=== PATIENT | male | born 1990 | race American Indian/Alaskan Native ===

== ENCOUNTER 2017-09-22 20:36 | Emergency (ER) | payer OTHER ==
[2017-09-22] MEDS ORDERED: Sodium Chloride 0.9% 10 ML Syringe FLUSH PRN (20:52)
[2017-09-22 21:16] LABS: ANION GAP 16.2; CHLORIDE,CL 103 mmol/L (101-111); SODIUM,NA 139 mmol/L (135-145)
[2017-09-22] MEDS ORDERED: LORazepam 2 MG/ML Syringe IVPUSH ONE (21:39)
--- NOTE | 2017-09-22 21:39 | EDM.PDOC ---
ED HPI GENERAL MEDICAL PROBLEM - General Chief Complaint: Chest Pain Stated Complaint: CHEST PAINS SOB Time Seen by Provider: 09/22/17 20:46 Source of Information: Reports: Patient, RN, RN Notes Reviewed History Limitations: Reports: No Limitations - History of Present Illness INITIAL COMMENTS - FREE TEXT/NARRATIVE: Pt to ER with c/o sudden onset chest heaviness, SOB. He states this has never happened before. 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 He states no pain, just heaviness, rates 8/10. Denies recent illness, fever, chills, N/V/D. Admits to anxiety in the past. Onset: Today, Sudden Location: Reports: Chest Quality: Reports: Pressure Severity: Moderate Improves with: Reports: None Worsens with: Reports: None Associated Symptoms: Reports: No Other Symptoms Chest Pain Score (Numeric/FACES): 8 - Related Data Allergies Allergy/AdvReac Type Severity Reaction Status Date / Time No Known Allergies Allergy Verified 09/22/17 20:51 Home Meds: Home Meds . [No Known Home Meds] 09/22/17 [History] Past Medical History HEENT History: Reports: None Cardiovascular History: Reports: None Respiratory History: Reports: None Gastrointestinal History: Reports: None Genitourinary History: Reports: None Musculoskeletal History: Reports: None Neurological History: Reports: None Psychiatric History: Reports: Anxiety Endocrine/Metabolic History: Reports: None Hematologic History: Reports: None Immunologic History: Reports: None Oncologic (Cancer) History: Reports: None Dermatologic History: Reports: None Social & Family History - Tobacco Use Smoking Status *Q: Current Some Day Smoker Years of Tobacco use: 2 Packs/Tins Daily: 0.1 - Caffeine Use Caffeine Use: Reports: None - Recreational Drug Use Recreational Drug Use: No ED ROS GENERAL - Review of Systems Review Of Systems: ROS reveals no pertinent complaints other than HPI. ED EXAM, GENERAL - Physical Exam Exam: See Below Exam Limited By: No Limitations General Appearance: Alert, WD/WN, Moderate Distress Eye Exam: Bilateral Eye: EOMI, Normal Inspection Ears: Normal External Exam, Hearing Grossly Normal Nose: Normal Inspection Throat/Mouth: Normal Inspection, Normal Voice, No Airway Compromise Head: Atraumatic, Normocephalic Neck: Normal Inspection, Supple, Non-Tender, Full Range of Motion Respiratory/Chest: No Respiratory Distress, Lungs Clear, Normal Breath Sounds, No Accessory Muscle Use, Chest Non-Tender Cardiovascular: Normal Peripheral Pulses, Regular Rate, Rhythm, No Edema, No Gallop, No JVD, No Murmur, No Rub Peripheral Pulses: 2+: Radial (L), Radial (R) GI/Abdominal: Normal Bowel Sounds, Soft, Non-Tender (Male) Exam: Deferred Rectal (Males) Exam: Deferred Back Exam: Normal Inspection, Full Range of Motion Extremities: Normal Inspection, Normal Range of Motion, Non-Tender, No Pedal Edema, Normal Capillary Refill Neurological: Alert, Oriented, CN II-XII Intact, Normal Cognition, Normal Gait, Normal Reflexes, No Motor/Sensory Deficits Psychiatric: Anxious Skin Exam: Warm, Dry, Intact, Normal Color, No Rash Lymphatic: No Adenopathy EKG INTERPRETATION EKG Date: 09/22/17 Time: 20:44 Rhythm: Other (sinus tachycardia) Rate (Beats/Min): 103 [place]: Normal P-Wave: Present QRS: Normal ST-T: Normal QT: Prolonged Course - Vital Signs Last Recorded V/S: Last Vital Signs Temp 98.6 F 09/22/17 20:40 Pulse 119 H 09/22/17 20:40 Resp 18 09/22/17 20:40 BP 134/100 H 09/22/17 20:40 Pulse Ox 98 09/22/17 20:40 - Orders/Labs/Meds Labs: Laboratory Tests 09/22/17 09/22/17 09/22/17 Range/Units 20:47 20:47 20:47 WBC 8.0 (5.0-10.0) 10^3/uL RBC 4.65 (4.6-6.2) 10^6/uL Hgb 14.3 (14.0-18.0) g/dL Hct 42.7 (40.0-54.0) % MCV 91.8 (80-100) fL MCH 30.8 (27.0-34.0) pg MCHC 33.5 (33.0-35.0) g/dL Plt Count 299 (150-450) 10^3/uL Neut % (Auto) 31.0 L (42.2-75.2) % Lymph % (Auto) 56.1 H (20.5-50.1) % Dane % (Auto) 8.9 H (2-8) % Eos % (Auto) 3.1 H (1.0-3.0) % Baso % (Auto) 0.9 (0.0-1.0) % D-Dimer, Quantitative 452 H (0-400) ng/mL Sodium 139 (135-145) mmol/L Potassium 3.2 L (3.6-5.0) mmol/L Chloride 103 (101-111) mmol/L Carbon Dioxide 23.0 (21.0-31.0) mmol/L Anion Gap 16.2 BUN 5 L (7-18) mg/dL Creatinine 0.8 (0.6-1.3) mg/dL Est Cr Clr Drug Dosing TNP Estimated GFR (MDRD) > 60 BUN/Creatinine Ratio 6.25 Glucose TNP Calcium 8.9 (8.4-10.2) mg/dl Total Bilirubin 0.5 (0.2-1.0) mg/dL AST 125 H (10-42) IU/L ALT 157 H (10-60) IU/L Alkaline Phosphatase 92 (42-121) IU/L Troponin I < 0.02 (0.00-0.02) ng/ml Total Protein 8.1 (6.7-8.2) g/dl Albumin 4.3 (3.2-5.5) g/dl Globulin 3.8 Albumin/Globulin Ratio 1.13 Urine Color (YELLOW) Urine Appearance (CLEAR) Urine pH (5.0-9.0) Ur Specific Criders (1.005-1.030) Urine Protein (NEGATIVE) Urine Glucose (UA) (NEGATIVE) Urine Ketones (NEGATIVE) Urine Occult Blood (NEGATIVE) Urine Nitrite (NEGATIVE) Urine Bilirubin (NEGATIVE) Urine Urobilinogen (0.2-1.0) mg/dL Ur Leukocyte Esterase (NEGATIVE) Urine RBC /HPF Urine WBC (0-5/HPF) /HPF Ur Epithelial Cells /HPF Urine Bacteria (0-FEW/HPF) /HPF Urine Mucus /LPF Urine Opiates Screen (NEGATIVE) Ur Oxycodone Screen (NEGATIVE) Urine Methadone Screen (NEGATIVE) Ur Barbiturates Screen (NEGATIVE) U Tricyclic Antidepress (NEGATIVE) Ur Phencyclidine Scrn (NEGATIVE) Ur Amphetamine Screen (NEGATIVE) U Methamphetamines Scrn (NEGATIVE) Urine MDMA Screen (NEGATIVE) U Benzodiazepines Scrn (NEGATIVE) Urine Cocaine Screen (NEGATIVE) U Marijuana (THC) Screen (NEGATIVE) Ethyl Alcohol 62 mg/dL 09/22/17 09/22/17 Range/Units 21:34 21:34 WBC (5.0-10.0) 10^3/uL RBC (4.6-6.2) 10^6/uL Hgb (14.0-18.0) g/dL Hct (40.0-54.0) % MCV (80-100) fL MCH (27.0-34.0) pg MCHC (33.0-35.0) g/dL Plt Count (150-450) 10^3/uL Neut % (Auto) (42.2-75.2) % Lymph % (Auto) (20.5-50.1) % Dane % (Auto) (2-8) % Eos % (Auto) (1.0-3.0) % Baso % (Auto) (0.0-1.0) % D-Dimer, Quantitative (0-400) ng/mL Sodium (135-145) mmol/L Potassium (3.6-5.0) mmol/L Chloride (101-111) mmol/L Carbon Dioxide (21.0-31.0) mmol/L Anion Gap BUN (7-18) mg/dL Creatinine (0.6-1.3) mg/dL Est Cr Clr Drug Dosing Estimated GFR (MDRD) BUN/Creatinine Ratio Glucose Calcium (8.4-10.2) mg/dl Total Bilirubin (0.2-1.0) mg/dL AST (10-42) IU/L ALT (10-60) IU/L Alkaline Phosphatase (42-121) IU/L Troponin I (0.00-0.02) ng/ml Total Protein (6.7-8.2) g/dl Albumin (3.2-5.5) g/dl Globulin Albumin/Globulin Ratio Urine Color Yellow (YELLOW) Urine Appearance Clear (CLEAR) Urine pH 7.5 (5.0-9.0) Ur Specific Criders 1.020 (1.005-1.030) Urine Protein 100 H (NEGATIVE) Urine Glucose (UA) Negative (NEGATIVE) Urine Ketones Negative (NEGATIVE) Urine Occult Blood Negative (NEGATIVE) Urine Nitrite Negative (NEGATIVE) Urine Bilirubin Negative (NEGATIVE) Urine Urobilinogen 0.2 (0.2-1.0) mg/dL Ur Leukocyte Esterase Negative (NEGATIVE) Urine RBC 0-5 /HPF Urine WBC 0-5 (0-5/HPF) /HPF Ur Epithelial Cells Few /HPF Urine Bacteria Rare (0-FEW/HPF) /HPF Urine Mucus Many H /LPF Urine Opiates Screen Negative (NEGATIVE) Ur Oxycodone Screen Negative (NEGATIVE) Urine Methadone Screen Negative (NEGATIVE) Ur Barbiturates Screen Negative (NEGATIVE) U Tricyclic Antidepress Negative (NEGATIVE) Ur Phencyclidine Scrn Negative (NEGATIVE) Ur Amphetamine Screen Negative (NEGATIVE) U Methamphetamines Scrn Negative (NEGATIVE) Urine MDMA Screen Negative (NEGATIVE) U Benzodiazepines Scrn Negative (NEGATIVE) Urine Cocaine Screen Negative (NEGATIVE) U Marijuana (THC) Screen Positive H (NEGATIVE) Ethyl Alcohol mg/dL Meds: Medications Discontinued Medications Generic Name Dose Route Start Last Admin Trade Name Freq PRN Reason Stop Dose Admin Lorazepam 1 mg 09/22/17 21:39 09/22/17 21:44 Ativan IVPUSH 09/22/17 21:40 1 mg ONETIME ONE Administration Sodium Chloride 10 ml 09/22/17 20:52 09/22/17 20:50 Saline Flush FLUSH 10 ml ASDIRECTED PRN Administration Keep Vein Open - Radiology Interpretation Free Text/Narrative:: Chest xray: IMPRESSION: No acute cardiopulmonary process. Thank you for allowing us to participate in the care of your patient. Dictated and Authenticated by: Niko Reyes MD 09/22/2017 9:10 PM Central Time ([place] & [place]) See Rad report Departure - Departure Time of Disposition: 22:35 Disposition: Home, Self-Care 01 Condition: Fair Clinical Impression: Anxiety, Alcohol abuse Instructions: Alcohol Use Disorder, Panic Attack, [id number], Nonspecific Chest Pain, [id number] Forms: ED Department Discharge Additional Instructions: Follow up in the clinic or at the [facility] for anxiety Refrain from drinking alcohol
== END 2017-09-22 22:42 | disposition home or self-care (01) ==
LOC: DL.ED 20:36
DX: F41.9 Anxiety disorder, unspecified (principal); F10.10 Alcohol abuse, uncomplicated; Y90.3 Blood alcohol level of 60-79 mg/100 ml; F17.210 Nicotine dependence, cigarettes, uncomplicated
CPT/HCPCS: 36415; 71045; 80053; 80305; 81001; 84484; 85025; 85379; 93005; 93010; 96374; 99285; G0480; J2060; J7050

== ENCOUNTER 2017-10-28 03:17 | Emergency (ER) | payer OTHER ==
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
[2017-10-28] MEDS ORDERED: fentaNYL 100 MCG/2 ML SDV IVPUSH ONE (04:14)
[2017-10-28] MEDS ORDERED: Ondansetron 4 MG/2 ML SDV IV ONE (04:14)
== END 2017-10-28 05:18 | disposition home or self-care (01) ==
LOC: DL.ED 03:17
DX: S42.034S Nondisplaced fracture of lateral end of right clavicle, sequela (principal); F17.210 Nicotine dependence, cigarettes, uncomplicated; X58.XXXS Exposure to other specified factors, sequela
CPT/HCPCS: 73030; 96374; 96375; 99283; J2405; J3010

== ENCOUNTER 2018-06-25 19:35 | Emergency (ER) | payer OTHER ==
[2018-06-25] MEDS ORDERED: Ibuprofen 800 MG Tab PO ONE (20:25)
--- NOTE | 2018-06-25 20:32 | EDM.PDOC ---
ED HPI GENERAL MEDICAL PROBLEM - General Chief Complaint: Lower Extremity Injury/Pain Stated Complaint: ANKLE INJURY Time Seen by Provider: 06/25/18 20:02 Source of Information: Reports: Patient History Limitations: Reports: No Limitations - History of Present Illness INITIAL COMMENTS - FREE TEXT/NARRATIVE: This 27 yo male patient reports to the ED with a left ankle injury. The patient reports he was playing basketball and rolled his left ankle. The patient reports increased pain and swelling in the ankle since the injury. The patient reports he was able to walk on the ankle after the injury. Onset: Today Duration: Minutes: Location: Reports: Lower Extremity, Left Quality: Reports: Ache, Dull Severity: Moderate Improves with: Reports: None Worsens with: Reports: None Context: Reports: Activity Associated Symptoms: Reports: No Other Symptoms Treatments SPEECH AND LANGUAGE SPECIALIST: Denies: Acetaminophen, NSAIDS Left Ankle Pain Score (Numeric/FACES): 6 - Related Data Allergies Allergy/AdvReac Type Severity Reaction Status Date / Time No Known Allergies Allergy Verified 10/28/17 03:26 Home Meds: Home Meds . [No Known Home Meds] 09/22/17 [History] Past Medical History HEENT History: Reports: None Cardiovascular History: Reports: None Respiratory History: Reports: None Gastrointestinal History: Reports: None Genitourinary History: Reports: None Musculoskeletal History: Reports: None Neurological History: Reports: None Psychiatric History: Reports: Anxiety Endocrine/Metabolic History: Reports: None Hematologic History: Reports: None Immunologic History: Reports: None Oncologic (Cancer) History: Reports: None Dermatologic History: Reports: None Social & Family History - Tobacco Use Smoking Status *Q: Unknown Ever Smoked - Caffeine Use Caffeine Use: Reports: None - Alcohol Use Days Per Week of Alcohol Use: 2 Number of Drinks Per Day: 2 Total Drinks Per Week: 4 - Recreational Drug Use Recreational Drug Use: No Review of Systems - Review of Systems Review Of Systems: ROS reveals no pertinent complaints other than HPI. ED EXAM, GENERAL - Physical Exam Exam: See Below Exam Limited By: No Limitations General Appearance: Alert, WD/WN, Mild Distress Eye Exam: Bilateral Eye: EOMI, Normal Inspection, PERRL Ears: Normal External Exam, Normal Canal, Hearing Grossly Normal, Normal TMs Nose: Normal Inspection, Normal Mucosa, No Blood Throat/Mouth: Normal Inspection, Normal Lips, Normal Teeth, Normal Gums, Normal Oropharynx, Normal Voice, No Airway Compromise Head: Atraumatic, Normocephalic Neck: Normal Inspection, Supple, Non-Tender, Full Range of Motion Respiratory/Chest: No Respiratory Distress, Lungs Clear, Normal Breath Sounds, No Accessory Muscle Use, Chest Non-Tender Cardiovascular: Normal Peripheral Pulses, Regular Rate, Rhythm, No Edema, No Gallop, No JVD, No Murmur, No Rub GI/Abdominal: Normal Bowel Sounds, Soft, Non-Tender, No Organomegaly, No Distention, No Abnormal Bruit, No Mass (Male) Exam: Deferred Rectal (Males) Exam: Deferred Back Exam: Normal Inspection, Full Range of Motion, NT Extremities: No Pedal Edema, Normal Capillary Refill, Joint Swelling (left ankle ) Neurological: Alert, Oriented, CN II-XII Intact, Normal Cognition, Normal Gait, Normal Reflexes, No Motor/Sensory Deficits Psychiatric: Normal Affect, Normal Mood Skin Exam: Warm, Dry, Intact, Normal Color, No Rash Lymphatic: No Adenopathy Course - Vital Signs Last Recorded V/S: Last Vital Signs Temp 36.2 C 06/25/18 19:47 Pulse 128 H 06/25/18 19:47 Resp 18 06/25/18 19:47 BP 117/87 06/25/18 19:47 Pulse Ox 96 06/25/18 19:47 - Orders/Labs/Meds Meds: Medications Discontinued Medications Generic Name Dose Route Start Last Admin Trade Name Bj PRN Reason Stop Dose Admin Ibuprofen 800 mg 06/25/18 20:25 06/25/18 20:44 Motrin PO 06/25/18 20:26 800 mg ONETIME ONE Administration Departure - Departure Time of Disposition: 20:58 Disposition: Home, Self-Care 01 Condition: Fair Clinical Impression: Left ankle sprain Qualifiers: Encounter type: initial encounter Involved ligament of ankle: unspecified ligament Qualified Code(s): S93.402A - Sprain of unspecified ligament of left ankle, initial encounter - Discharge Information *PRESCRIPTION DRUG MONITORING PROGRAM REVIEWED*: Not Applicable *COPY OF PRESCRIPTION DRUG MONITORING REPORT IN PATIENT POLO: Not Applicable Instructions: How to Use a Stirrup Ankle Brace, Ankle Sprain, [id number] Forms: ED Department Discharge Care Plan Goals: The patient was advised of the examination and x-ray results during the visit. The patient was given an oral dose of ibuprofen while in the ED. The patient was placed in an ankle support and given a set of crutches while in the ED. The patient was encouraged to rest, ice and elevate the extremity. The patient may take Tylenol or ibuprofen as directed for temporary symptom relief. If the patient has any additional symptoms or concerns, the patient should either return to the emergency department or visit his primary care facility.
== END 2018-06-25 21:05 | disposition home or self-care (01) ==
LOC: DL.ED 19:35
DX: S93.402A Sprain of unspecified ligament of left ankle, initial encounter (principal); X50.1XXA Overexertion from prolonged static or awkward postures, initial encounter; Y93.67 Activity, basketball
CPT/HCPCS: 73610; 99283; A9270

== ENCOUNTER 2018-06-29 08:03 | Emergency (ER) | payer OTHER ==
[2018-06-29] MEDS ORDERED: Sodium Chloride 0.9% 10 ML Syringe FLUSH PRN (08:18)
--- NOTE | 2018-06-29 08:18 | EDM.PDOC ---
ED HPI GENERAL MEDICAL PROBLEM - General Chief Complaint: Chest Pain Stated Complaint: CHEST PAINS Time Seen by Provider: 06/29/18 08:18 Source of Information: Reports: Patient, Old Records, RN, RN Notes Reviewed - History of Present Illness INITIAL COMMENTS - FREE TEXT/NARRATIVE: Pt presents to ER from home by POV with c/o chest pain/pressure that began about 0200HRS this morning. Pt states he feels anxious and a little shaking in the hands. Pt states that he has vomited a few time in the past 2 days, but attributes it to heavy alcohol consumption. He states that he hurt his ankle about 5 days ago and didn't want to use "pain pills" so he began drinking alcohol heavily for the pain. He states he usually has several beers or drinks each night for the past several years. He last drank 2 beers at approx. 0400HRS this morning. He also c/o a very dry mouth. He denies abdominal pain, shortness of breath, cough, palpitations, or edema. Onset: Today Duration: Constant Location: Reports: Chest Quality: Reports: Pressure Severity: Mild Improves with: Reports: None Worsens with: Reports: None Associated Symptoms: Reports: No Other Symptoms Chest Pain Score (Numeric/FACES): 2 - Related Data Allergies Allergy/AdvReac Type Severity Reaction Status Date / Time No Known Allergies Allergy Verified 10/28/17 03:26 Home Meds: Home Meds . [No Known Home Meds] 09/22/17 [History] Past Medical History HEENT History: Reports: None Cardiovascular History: Reports: None Respiratory History: Reports: None Gastrointestinal History: Reports: None Genitourinary History: Reports: None Musculoskeletal History: Reports: None Neurological History: Reports: None Psychiatric History: Reports: Anxiety Endocrine/Metabolic History: Reports: None Hematologic History: Reports: None Immunologic History: Reports: None Oncologic (Cancer) History: Reports: None Dermatologic History: Reports: None Social & Family History - Family History Family Medical History: Noncontributory - Caffeine Use Caffeine Use: Reports: None - Living Situation & Occupation Living situation: Reports: with Family Occupation: Employed ED ROS GENERAL - Review of Systems Review Of Systems: ROS reveals no pertinent complaints other than HPI. ED EXAM, GENERAL - Physical Exam Exam: See Below Exam Limited By: No Limitations General Appearance: Alert, WD/WN, No Apparent Distress, Anxious Eye Exam: Bilateral Eye: EOMI, Nystagmus (lateral gaze), PERRL Ears: Normal External Exam, Normal Canal, Hearing Grossly Normal, Normal TMs Nose: Normal Inspection, Normal Mucosa, No Blood Throat/Mouth: Normal Lips, Normal Teeth, Normal Gums, Normal Oropharynx, Normal Voice, No Airway Compromise, Other (Dry oral membranes) Head: Atraumatic, Normocephalic Neck: Normal Inspection, Supple, Non-Tender, Full Range of Motion Respiratory/Chest: No Respiratory Distress, Lungs Clear, Normal Breath Sounds, No Accessory Muscle Use, Chest Non-Tender Cardiovascular: Normal Peripheral Pulses, Regular Rate, Rhythm, No Edema, No JVD , No Murmur, Tachycardia GI/Abdominal: Normal Bowel Sounds, Soft, No Organomegaly, No Distention, No Abnormal Bruit, Tender (Mild epigastric tenderness). No: Guarding, Rigid, Rebound (Male) Exam: Deferred Rectal (Males) Exam: Deferred Back Exam: Normal Inspection Extremities: Normal Inspection, Normal Range of Motion, Non-Tender, Normal Capillary Refill, No Pedal Edema Neurological: Alert, Oriented, CN II-XII Intact, Normal Cognition, Normal Gait, No Motor/Sensory Deficits Psychiatric: Anxious Skin Exam: Warm, Dry, Intact, Normal Color, No Rash. No: Jaundice, Petechiae EKG INTERPRETATION EKG Date: 06/29/18 Time: 08:13 Rhythm: Other (Sinus Tach) Rate (Beats/Min): 120 Bulger: Normal P-Wave: Present QRS: Normal ST-T: Normal QT: Prolonged (borderline) Comparison: No Change Course - Vital Signs Last Recorded V/S: Last Vital Signs Temp 36.7 C 06/29/18 08:19 Pulse 137 H 06/29/18 08:19 Resp 20 06/29/18 08:19 BP 116/72 06/29/18 08:19 Pulse Ox 97 06/29/18 08:19 - Orders/Labs/Meds Orders: Active Orders 24 hr Category Date Time Status EKG 12 Lead [EKG Documentation Completion] [RC] STAT Care 06/29/18 08:18 Active Peripheral IV Care [RC] . DIRECTED Care 06/29/18 08:19 Active DRUG SCREEN URINE BIORAD [URCHEM] Stat Lab 06/29/18 08:19 Ordered UA RFX PINEDA AND CULT IF INDIC [URIN] Stat Lab 06/29/18 08:19 Ordered Sodium Chloride 0.9% [Saline Flush] Med 06/29/18 08:18 Active 10 ml FLUSH ASDIRECTED PRN Peripheral IV Insertion Adult [OM.PC] Stat Oth 06/29/18 08:18 Ordered Medication Orders Sodium Chloride (Saline Flush) 10 ml FLUSH ASDIRECTED PRN PRN Reason: Keep Vein Open Last Admin: 06/29/18 09:09 Dose: 10 ml Labs: Laboratory Tests 06/29/18 06/29/18 Range/Units 08:15 08:15 WBC 9.1 (5.0-10.0) 10^3/uL RBC 4.56 L (4.6-6.2) 10^6/uL Hgb 14.4 (14.0-18.0) g/dL Hct 43.0 (40.0-54.0) % MCV 94.3 (80-100) fL MCH 31.6 (27.0-34.0) pg MCHC 33.5 (33.0-35.0) g/dL Plt Count 321 (150-450) 10^3/uL Neut % (Auto) 60.4 (42.2-75.2) % Lymph % (Auto) 27.3 (20.5-50.1) % [place] % (Auto) 10.5 H (2-8) % Eos % (Auto) 1.0 (1.0-3.0) % Baso % (Auto) 0.8 (0.0-1.0) % Sodium 138 (135-145) mmol/L Potassium 3.2 L (3.6-5.0) mmol/L Chloride 101 (101-111) mmol/L Carbon Dioxide 23.0 (21.0-31.0) mmol/L Anion Gap 17.2 BUN 5 L (7-18) mg/dL Creatinine 0.7 (0.6-1.3) mg/dL Est Cr Clr Drug Dosing 146.89 mL/min Estimated GFR (MDRD) > 60 BUN/Creatinine Ratio 7.14 Glucose 149 H (74-105) mg/dL Calcium 9.1 (8.4-10.2) mg/dl Total Bilirubin 0.8 (0.2-1.0) mg/dL AST 280 H (10-42) IU/L ALT 270 H (10-60) IU/L Alkaline Phosphatase 92 (42-121) IU/L Troponin I < 0.02 (0.00-0.02) ng/ml Total Protein 8.6 H (6.7-8.2) g/dl Albumin 4.1 (3.2-5.5) g/dl Globulin 4.5 Albumin/Globulin Ratio 0.91 Amylase 70 (28-100) U/L Lipase 44 (22-51) U/L Ethyl Alcohol 144 mg/dL Meds: Medications Generic Name Dose Route Start Last Admin Trade Name Freq PRN Reason Stop Dose Admin Sodium Chloride 10 ml 06/29/18 08:18 06/29/18 09:09 Saline Flush FLUSH 10 ml ASDIRECTED PRN Administration Keep Vein Open Discontinued Medications Generic Name Dose Route Start Last Admin Trade Name Freq PRN Reason Stop Dose Admin Famotidine 20 mg 06/29/18 08:26 06/29/18 09:09 Pepcid IVPUSH 06/29/18 08:27 20 mg ONETIME ONE Administration Multivitamins/Minerals 10 ml/ 1,011.2 mls @ 999 mls/hr 06/29/18 08:26 09:09 Thiamine HCl 100 mg/ Folic IV 06/29/18 09:26 999 mls/hr Acid 1 mg/ Lactated Ringer's .BOLUS ONE Administration Lorazepam 1 mg 06/29/18 08:26 06/29/18 09:09 Ativan IVPUSH 06/29/18 08:27 1 mg ONETIME ONE Administration Ondansetron HCl 4 mg 06/29/18 08:26 06/29/18 09:09 Zofran IV 06/29/18 08:27 4 mg ONETIME ONE Administration - Radiology Interpretation Free Text/Narrative:: CXR: no acute process per Rad. report. Departure - Departure Time of Disposition: 09:51 Disposition: Home, Self-Care 01 Condition: Good Clinical Impression: Non-cardiac chest pain, Alcoholic liver disease Gastroesophageal reflux disease Qualifiers: Esophagitis presence: with esophagitis Qualified Code(s): K21.0 - Gastro- esophageal reflux disease with esophagitis Alcoholic gastritis without bleeding Qualifiers: Chronicity: acute Qualified Code(s): K29.20 - Alcoholic gastritis without bleeding Instructions: Food Choices for Gastroesophageal Reflux Disease, Adult, Alcoholic Liver Disease, [id number] Forms: ED Department Discharge Additional Instructions: Rx: Omeprazole 20mg Rx: Ativan (Lorazepam) 1mg *Do not drive, work, or drink alcohol while under the influence of this medication. Abstain from alcohol consumption. Follow up in clinic if not improving in 3 to 4 days. [facility] or [facility] if you need help to quit drinking alcohol. - My Orders Last 24 Hours: My Active Orders 06/29/18 08:18 EKG 12 Lead [EKG Documentation Completion] [RC] STAT Sodium Chloride 0.9% [Saline Flush] 10 ml FLUSH ASDIRECTED PRN Peripheral IV Insertion Adult [OM.PC] Stat 06/29/18 08:19 Peripheral IV Care [RC] . DIRECTED DRUG SCREEN URINE BIORAD [URCHEM] Stat UA RFX PINEDA AND CULT IF INDIC [URIN] Stat - Assessment/Plan Last 24 Hours: My Active Orders 06/29/18 08:18 EKG 12 Lead [EKG Documentation Completion] [RC] STAT Sodium Chloride 0.9% [Saline Flush] 10 ml FLUSH ASDIRECTED PRN Peripheral IV Insertion Adult [OM.PC] Stat 06/29/18 08:19 Peripheral IV Care [RC] . DIRECTED DRUG SCREEN URINE BIORAD [URCHEM] Stat UA RFX PINEDA AND CULT IF INDIC [URIN] Stat
[2018-06-29] MEDS ORDERED: LORazepam 2 MG/ML Syringe IVPUSH ONE (08:26)
[2018-06-29] MEDS ORDERED: Ondansetron 4 MG/2 ML SDV IV ONE (08:26)
[2018-06-29] MEDS ORDERED: MVI, Adult with Vitamin K 10 ML, Thiamine 100 MG, Folic Acid 1 MG in Lactated Ringers 1... IV ONE ×4 (08:26)
[2018-06-29] MEDS ORDERED: Famotidine 20 MG/2 ML SDV IVPUSH ONE (08:26)
[2018-06-29 08:43] LABS: ANION GAP 17.2; CHLORIDE,CL 101 mmol/L (101-111); SODIUM,NA 138 mmol/L (135-145)
--- NOTE | 2018-06-29 08:49 | CR ---
Clinical history: 27-year-old male chest pain Interpretation: Reasonable inspiratory effort obese male with external humanities division chair leads. Old fracture right clavicle. Normal cardiac silhouette without cephalization of flow signs of alveolar edema or dependent effusion. No lung mass, hilar lymphadenopathy or focal lobar pneumonia. No atelectasis/collapse. Midline tracheal airway unremarkable. No pneumothorax. CONCLUSION: No acute new cardiopulmonary abnormality when compared 22 September 2017 exam.
== END 2018-06-29 10:07 | disposition home or self-care (01) ==
LOC: DL.ED 08:03
DX: K70.9 Alcoholic liver disease, unspecified (principal); K29.20 Alcoholic gastritis without bleeding; K21.0 Gastro-esophageal reflux disease with esophagitis; R07.89 Other chest pain
CPT/HCPCS: 36415; 71045; 80053; 82150; 83690; 84484; 85025; 93005; 96365; 96374; 96375; 99284; G0480; J2060; J2405; J3411; J3490; J7120; 93010

== ENCOUNTER 2018-12-16 07:40 | Emergency (ER) | payer SELFPAY ==
[2018-12-16] MEDS ORDERED: Sodium Chloride 0.9% 10 ML Syringe FLUSH PRN (07:52)
[2018-12-16] MEDS ORDERED: LORazepam 2 MG/ML Syringe IVPUSH ONE (08:02)
[2018-12-16] MEDS ORDERED: MVI, Adult with Vitamin K 10 ML, Folic Acid 1 MG, Thiamine 100 MG in Lactated Ringers 1... IV ONE ×4 (08:02)
--- NOTE | 2018-12-16 08:11 | EDM.PDOC ---
ED HPI GENERAL MEDICAL PROBLEM - General Chief Complaint: Chest Pain Stated Complaint: CHEST PAIN Time Seen by Provider: 12/16/18 07:55 Source of Information: Reports: Patient, RN, RN Notes Reviewed History Limitations: Reports: No Limitations - History of Present Illness INITIAL COMMENTS - FREE TEXT/NARRATIVE: Pt to ER with c/o midsternal chest pains. States the pain began about 2300 last night and does not radiate anywhere. Patient states he does have troubles with anxiety and acid reflux. Denies any cardiac history in himself or family. Denies drug use, admits to provider "a few beers last night with friends". Admitted to nurse that he drinks 4 or more every day for the past many days. Denies any recent illness, cough, fever, chills, vomiting or diarrhea, SOB. Admits to some nausea. Onset: Sudden Onset Date: 12/15/18 Duration: Constant Location: Reports: Chest Quality: Reports: Sharp Severity: Moderate Improves with: Reports: None Worsens with: Reports: None Associated Symptoms: Reports: Chest Pain, Nausea/Vomiting Mid-Sternal Pain Score (Numeric/FACES): 5 - Related Data Allergies Allergy/AdvReac Type Severity Reaction Status Date / Time No Known Allergies Allergy Verified 12/16/18 07:57 Home Meds: Home Meds . [No Known Home Meds] 09/22/17 [History] Past Medical History HEENT History: Reports: None Cardiovascular History: Reports: None Respiratory History: Reports: None Gastrointestinal History: Reports: None Genitourinary History: Reports: None Musculoskeletal History: Reports: None Neurological History: Reports: None Psychiatric History: Reports: Anxiety Endocrine/Metabolic History: Reports: None Hematologic History: Reports: None Immunologic History: Reports: None Oncologic (Cancer) History: Reports: None Dermatologic History: Reports: None Social & Family History - Family History Family Medical History: Noncontributory - Tobacco Use Smoking Status *Q: Never Smoker - Caffeine Use Caffeine Use: Reports: None - Alcohol Use Days Per Week of Alcohol Use: 7 Number of Drinks Per Day: 3 Total Drinks Per Week: 21 - Recreational Drug Use Recreational Drug Use: No - Living Situation & Occupation Living situation: Reports: with Family Occupation: Employed ED ROS GENERAL - Review of Systems Review Of Systems: ROS reveals no pertinent complaints other than HPI. ED EXAM, GENERAL - Physical Exam Exam: See Below Exam Limited By: No Limitations General Appearance: Alert, WD/WN, Moderate Distress Eye Exam: Bilateral Eye: EOMI, Normal Inspection Ears: Normal External Exam, Hearing Grossly Normal Nose: Normal Inspection Throat/Mouth: Normal Inspection, Normal Voice, No Airway Compromise Head: Atraumatic, Normocephalic Neck: Normal Inspection, Supple, Non-Tender, Full Range of Motion Respiratory/Chest: No Respiratory Distress, Lungs Clear, Normal Breath Sounds, No Accessory Muscle Use, Chest Non-Tender Cardiovascular: Normal Peripheral Pulses, Regular Rate, Rhythm, No Edema, No Gallop, No JVD, No Murmur, No Rub Peripheral Pulses: 2+: Radial (L), Radial (R) GI/Abdominal: Normal Bowel Sounds, Soft, Non-Tender (Male) Exam: Deferred Rectal (Males) Exam: Deferred Back Exam: Normal Inspection, Full Range of Motion, NT Extremities: Normal Inspection, Normal Range of Motion, Non-Tender, Normal Capillary Refill, No Pedal Edema Neurological: Alert, Oriented, CN II-XII Intact, Normal Cognition, Normal Gait, Normal Reflexes, No Motor/Sensory Deficits Psychiatric: Normal Affect, Normal Mood, Anxious Skin Exam: Warm, Dry, Intact, Normal Color, No Rash Lymphatic: No Adenopathy Course - Vital Signs Last Recorded V/S: Last Vital Signs Temp 99.6 F 12/16/18 07:40 Pulse 100 12/16/18 07:40 Resp 20 12/16/18 07:40 BP 133/84 12/16/18 07:40 Pulse Ox 97 12/16/18 07:40 - Orders/Labs/Meds Orders: Active Orders 24 hr Category Date Time Status EKG Documentation Completion [RC] STAT Care 12/16/18 07:52 Active Peripheral IV Care [RC] . DIRECTED Care 12/16/18 07:52 Active Chest 1V Frontal [CR] Stat Exams 12/16/18 07:52 Taken DRUG SCREEN URINE BIORAD [URCHEM] Stat Lab 12/16/18 07:52 Ordered UA RFX PINEDA AND CULT IF INDIC [URIN] Stat Lab 12/16/18 07:52 Ordered Peripheral IV Insertion Adult [OM.PC] Stat Oth 12/16/18 07:52 Ordered Labs: Laboratory Tests 12/16/18 12/16/18 Range/Units 07:55 07:55 WBC 7.9 (5.0-10.0) 10^3/uL RBC 4.53 L (4.6-6.2) 10^6/uL Hgb 14.4 (14.0-18.0) g/dL Hct 42.2 (40.0-54.0) % MCV 93.2 (80-100) fL MCH 31.8 (27.0-34.0) pg MCHC 34.1 (33.0-35.0) g/dL Plt Count 335 (150-450) 10^3/uL Neut % (Auto) 56.0 (42.2-75.2) % Lymph % (Auto) 35.1 (20.5-50.1) % [place] % (Auto) 7.6 (2-8) % Eos % (Auto) 0.4 L (1.0-3.0) % Baso % (Auto) 0.9 (0.0-1.0) % Sodium 140 (135-145) mmol/L Potassium 3.4 L (3.6-5.0) mmol/L Chloride 102 (101-111) mmol/L Carbon Dioxide 24.0 (21.0-31.0) mmol/L Anion Gap 17.4 BUN 5 L (7-18) mg/dL Creatinine 0.8 (0.6-1.3) mg/dL Est Cr Clr Drug Dosing 127.38 mL/min Estimated GFR (MDRD) > 60 BUN/Creatinine Ratio 6.25 Glucose 122 H (74-105) mg/dL Calcium 9.2 (8.4-10.2) mg/dl Total Bilirubin 0.7 (0.2-1.0) mg/dL AST 93 H (10-42) IU/L ALT 139 H (10-60) IU/L Alkaline Phosphatase 68 (42-121) IU/L Troponin I 0.02 (0.00-0.02) ng/ml Total Protein 8.3 H (6.7-8.2) g/dl Albumin 4.4 (3.2-5.5) g/dl Globulin 3.9 Albumin/Globulin Ratio 1.13 Ethyl Alcohol 157 mg/dL Meds: Medications Discontinued Medications Generic Name Dose Route Start Last Admin Trade Name Freq PRN Reason Stop Dose Admin Multivitamins/Minerals 10 ml/ 1,011.2 mls @ 999 mls/hr 12/16/18 08:02 08:08 Folic Acid 1 mg/ Thiamine HCl IV 12/16/18 09:02 999 mls/hr 100 mg/ Lactated Ringer's ONETIME ONE Administration Lorazepam 1 mg 12/16/18 08:02 12/16/18 08:09 Ativan IVPUSH 12/16/18 08:03 1 mg ONETIME ONE Administration Sodium Chloride 10 ml 12/16/18 07:52 12/16/18 08:04 Saline Flush FLUSH 10 ml ASDIRECTED PRN Administration Keep Vein Open - Radiology Interpretation Free Text/Narrative:: Chest xray: FINDINGS: Lungs: Unremarkable. No consolidation. Pleural space: Unremarkable. No pleural effusion. No pneumothorax. Heart/Mediastinum: The cardiomediastinal silhouette is fairly stable in appearance. Bones/joints: Chronic right clavicular fracture. IMPRESSION: No evidence for acute pulmonary disease. Thank you for allowing us to participate in the care of your patient. Dictated and Authenticated by: Marino Stanford MD 12/16/2018 9:18 AM Central Time ([place] & [place]) See rad report Departure - Departure Time of Disposition: 09:02 Disposition: Home, Self-Care 01 Condition: Fair Clinical Impression: Alcohol abuse, Anxiety Alcoholic gastritis without bleeding Qualifiers: Chronicity: acute Qualified Code(s): K29.20 - Alcoholic gastritis without bleeding Instructions: Gastritis, Adult, [id number], What You Need to Know About Alcohol Abuse and Dependence, Adult, Panic Attack, [id number] Forms: ED Department Discharge Additional Instructions: Refrain from drinking alcohol RX: Omeprazole as directed Drink plenty of water Follow up with your primary care facility - My Orders Last 24 Hours: My Active Orders 12/16/18 07:52 EKG Documentation Completion [RC] STAT Peripheral IV Care [RC] . DIRECTED Chest 1V Frontal [CR] Stat DRUG SCREEN URINE BIORAD [URCHEM] Stat UA RFX PINEDA AND CULT IF INDIC [URIN] Stat Peripheral IV Insertion Adult [OM.PC] Stat - Assessment/Plan Last 24 Hours: My Active Orders 12/16/18 07:52 EKG Documentation Completion [RC] STAT Peripheral IV Care [RC] . DIRECTED Chest 1V Frontal [CR] Stat DRUG SCREEN URINE BIORAD [URCHEM] Stat UA RFX PINEDA AND CULT IF INDIC [URIN] Stat Peripheral IV Insertion Adult [OM.PC] Stat
[2018-12-16 08:23] LABS: ANION GAP 17.4; CHLORIDE,CL 102 mmol/L (101-111); SODIUM,NA 140 mmol/L (135-145)
== END 2018-12-16 09:17 | disposition home or self-care (01) ==
LOC: DL.ED 07:40
DX: K29.20 Alcoholic gastritis without bleeding (principal); F10.10 Alcohol abuse, uncomplicated; F41.9 Anxiety disorder, unspecified; Y90.6 Blood alcohol level of 120-199 mg/100 ml
CPT/HCPCS: 36415; 71045; 80053; 80320; 84484; 85025; 93005; 96365; 96375; 99285; J2060; J3411; J7120; G0480; J3490

== ENCOUNTER 2019-12-10 19:47 | Emergency (ER) | payer SELFPAY ==
[2019-12-10] MEDS ORDERED: Pantoprazole 40 MG Vial IVPUSH ONE (20:25)
[2019-12-10] MEDS ORDERED: GI Cocktail Oral Solution 30 ML PO ONE (20:25)
[2019-12-10 20:39] LABS: ANION GAP 15.5 mEq/L (7-13); CHLORIDE,CL 103 mmol/L (98-107); SODIUM,NA 141 mmol/L (136-145)
--- NOTE | 2019-12-10 21:12 | EDM.PDOC ---
ED HPI GENERAL MEDICAL PROBLEM - General Chief Complaint: Chest Pain Stated Complaint: CHEST PAINS Time Seen by Provider: 12/10/19 20:00 Source of Information: Reports: Patient History Limitations: Reports: No Limitations - History of Present Illness INITIAL COMMENTS - FREE TEXT/NARRATIVE: ED with epigastric pain for past 2 hours. Hx esophageal ulcer, states worried that ulcer is back. Strong odor of ETOH. Admits drinking 4-5 per night recently. Reports taking prilosec daily. Denies vomiting. Has not tried anything for discomfort No fever chills or cough. Middle Chest Pain Score (Numeric/FACES): 4 - Related Data Allergies Allergy/AdvReac Type Severity Reaction Status Date / Time No Known Allergies Allergy Verified 12/10/19 20:18 Home Meds: Home Meds . [No Known Home Meds] 09/22/17 [History] Past Medical History HEENT History: Reports: None Cardiovascular History: Reports: None Respiratory History: Reports: None Gastrointestinal History: Reports: GERD, Other (See Below) Other Gastrointestinal History: Reoprts "esophageal tear that resolved on its own" Genitourinary History: Reports: None Musculoskeletal History: Reports: None Neurological History: Reports: None Psychiatric History: Reports: Addiction, Anxiety Endocrine/Metabolic History: Reports: None Hematologic History: Reports: None Immunologic History: Reports: None Oncologic (Cancer) History: Reports: None Dermatologic History: Reports: None Social & Family History - Family History Family Medical History: Noncontributory - Tobacco Use Smoking Status *Q: Never Smoker - Caffeine Use Caffeine Use: Reports: None - Recreational Drug Use Recreational Drug Use: No - Living Situation & Occupation Living situation: Reports: with Family Occupation: Employed ED ROS GENERAL - Review of Systems Review Of Systems: Comprehensive ROS is negative, except as noted in HPI. ED EXAM, GI/ABD - Physical Exam Exam: See Below Exam Limited By: No Limitations General Appearance: Alert, No Apparent Distress Ears: Normal External Exam, Normal TMs Nose: Normal Inspection Throat/Mouth: Normal Inspection Head: Atraumatic, Normocephalic Neck: Normal Inspection Respiratory/Chest: No Respiratory Distress, Lungs Clear, Normal Breath Sounds Cardiovascular: Normal Peripheral Pulses, Regular Rate, Rhythm GI/Abdominal Exam: Normal Bowel Sounds, Soft, Non-Tender. No: Distended, Rigid, Rebound, Tender Extremities: Normal Inspection, Normal Range of Motion Neurological: Alert, Oriented, Normal Cognition, No Motor/Sensory Deficits Psychiatric: Normal Affect, Normal Mood Skin Exam: Warm, Dry, Intact, Normal Color Course - Vital Signs Last Recorded V/S: Last Vital Signs Temp 98.6 F 12/10/19 20:00 Pulse 113 H 12/10/19 20:00 Resp 18 12/10/19 20:00 BP 137/86 12/10/19 20:00 Pulse Ox 94 L 12/10/19 20:00 - Orders/Labs/Meds Labs: Laboratory Tests 12/10/19 12/10/19 Range/Units 20:12 20:12 WBC 6.5 (5.0-10.0) 10^3/uL RBC 4.59 L (4.6-6.2) 10^6/uL Hgb 14.0 (14.0-18.0) g/dL Hct 40.9 (40.0-54.0) % MCV 89.1 D (80-100) fL MCH 30.5 (27.0-34.0) pg MCHC 34.2 (33.0-35.0) g/dL Plt Count 285 (150-450) 10^3/uL Neut % (Auto) 47.9 (42.2-75.2) % Lymph % (Auto) 41.4 (20.5-50.1) % [place] % (Auto) 8.4 H (2-8) % Eos % (Auto) 1.1 (1.0-3.0) % Baso % (Auto) 1.2 H (0.0-1.0) % Sodium 141 (136-145) mmol/L Potassium 3.5 (3.5-5.1) mmol/L Chloride 103 (98-107) mmol/L Carbon Dioxide 26 (21-32) mmol/L Anion Gap 15.5 H (7-13) mEq/L BUN 12 (7-18) mg/dL Creatinine 0.89 (0.70-1.30) mg/dL Est Cr Clr Drug Dosing 113.47 mL/min Estimated GFR (MDRD) > 60 BUN/Creatinine Ratio 13.5 (No establ ref range) Glucose 117 H (74-99) mg/dL Calcium 8.1 L (8.5-10.1) mg/dL Total Bilirubin 0.3 (0.2-1.0) mg/dL AST 23 (15-37) U/L ALT 30 (16-63) U/L Alkaline Phosphatase 75 (46-116) U/L Total Protein 7.7 (6.4-8.2) g/dL Albumin 3.6 (3.4-5.0) g/dL Globulin 4.1 Albumin/Globulin Ratio 0.9 Amylase 59 (25-115) U/L Lipase 246 (73-393) U/L Ethyl Alcohol 259 (0) mg/dL Meds: Medications Discontinued Medications Generic Name Dose Route Start Last Admin Trade Name Freq PRN Reason Stop Dose Admin Al Hydroxide/Mg Hydroxide 30 ml 12/10/19 20:25 12/10/19 21:15 Gi Cocktail PO 12/10/19 20:26 30 ml ONETIME ONE Administration Pantoprazole Sodium 80 mg 12/10/19 20:25 12/10/19 21:15 Protonix Iv IVPUSH 12/10/19 20:26 80 mg .BOLUS ONE Administration Departure - Departure Time of Disposition: 21:15 Disposition: Home, Self-Care 01 Condition: Good Clinical Impression: Alcohol abuse, Alcoholic gastritis without bleeding - Discharge Information *PRESCRIPTION DRUG MONITORING PROGRAM REVIEWED*: No *COPY OF PRESCRIPTION DRUG MONITORING REPORT IN PATIENT POLO: No Instructions: Alcohol Use Disorder, Food Choices for Gastroesophageal Reflux Disease, Adult, Gastroesophageal Reflux Disease, Adult, [id number] Forms: ED Department Discharge Additional Instructions: Stop alcohol use bland diet follow up with primary care this week omeproazole 20mg twice daily for one week then decrease to daily Sepsis Event Note (ED) - Evaluation Sepsis Screening Result: No Definite Risk - Focused Exam Vital Signs: Vital Signs Temp Pulse Resp BP Pulse Ox 12/10/19 20:00 98.6 F 113 H 18 137/86 94 L
== END 2019-12-10 21:24 | disposition home or self-care (01) ==
LOC: DL.ED 19:47
DX: K29.20 Alcoholic gastritis without bleeding (principal); F10.10 Alcohol abuse, uncomplicated; Y90.8 Blood alcohol level of 240 mg/100 ml or more
CPT/HCPCS: 36415; 80053; 80307; 82150; 83690; 85025; 93005; 96374; 99284; A9270; C9113; 99283

== ENCOUNTER 2019-12-11 07:03 | Inpatient (IN) | payer OTHER ==
--- NOTE | 2019-12-11 07:19 | EDM.PDOCBH ---
ED HPI GENERAL MEDICAL PROBLEM - General Chief Complaint: Drug or Alcohol Abuse Stated Complaint: PT SAYS CHEST PAIN, WITH-DRAWLLS Time Seen by Provider: 12/11/19 07:19 Source of Information: Reports: Patient, RN, RN Notes Reviewed - History of Present Illness INITIAL COMMENTS - FREE TEXT/NARRATIVE: Patient presents to ER with complaint of chest pains and alcohol withdrawal. Patient states he feels the chest pain is from anxiety, and that he is withdrawing from alcohol. Patient states last drink was yesterday afternoon. Patient states he drinks a couple shots a day, and drinks daily. States no h eadache at this time mild nausea with no vomiting. Visible tremors, patient states he feels sweaty. No auditory or visual hallucinations. Patient states he feels very anxious. Patient states he does want to quit drinking, and does want help. Onset: Gradual - Related Data Allergies Allergy/AdvReac Type Severity Reaction Status Date / Time No Known Allergies Allergy Verified 12/11/19 07:17 Home Meds: Home Meds . [No Known Home Meds] 09/22/17 [History] CIWAA - CIWAA CIWAA Nausea And Vomitin - Mild Nausea with No Vomiting CIWAA Tremor: 4 - Moderate, with Patient's Arms Extended CIWAA Paroxysmal Sweats: 1 - Barely Perceptible Sweating, Palms Moist CIWAA Anxiety: 3 CIWAA Agitation: 1 -Somewhat More than Normal Activity CIWAA Tactile Disturbances: 1 - Very Mild Itching, Pins and [place], Burning or Numbness CIWAA Auditory Disturbances: 0 - Not Present CIWAA Visual Disturbances: 0 - Not Present CIWAA Headache, Fullness in Head: 0 - Not Present CIWAA Orientation And Clouding Of Sensorium: 0 - Oriented and Can do Serial Additions CIWAA Scale Score: 11 Past Medical History HEENT History: Reports: None Cardiovascular History: Reports: None Respiratory History: Reports: None Gastrointestinal History: Reports: GERD, Other (See Below) Other Gastrointestinal History: Reoprts "esophageal tear that resolved on its own" Genitourinary History: Reports: None Musculoskeletal History: Reports: None Neurological History: Reports: None Psychiatric History: Reports: Addiction, Anxiety Endocrine/Metabolic History: Reports: None Hematologic History: Reports: None Immunologic History: Reports: None Oncologic (Cancer) History: Reports: None Dermatologic History: Reports: None Social & Family History - Family History Family Medical History: Noncontributory - Tobacco Use Smoking Status *Q: Never Smoker Second Hand Smoke Exposure: No - Caffeine Use Caffeine Use: Reports: Coffee, Soda - Alcohol Use Days Per Week of Alcohol Use: 7 Number of Drinks Per Day: 6 Total Drinks Per Week: 42 Date of Last Drink: 12/10/19 Time of Last Drink: 15:00 - Recreational Drug Use Recreational Drug Use: No - Living Situation & Occupation Living situation: Reports: with Family Occupation: Employed ED ROS GENERAL - Review of Systems Review Of Systems: Comprehensive ROS is negative, except as noted in HPI. ED EXAM, BEHAVIORAL HEALTH - Physical Exam Exam: See Below Exam Limited By: Intoxication General Appearance: Alert, WD/WN, Anxious, Moderate Distress Eye Exam: Bilateral Eye: EOMI, Normal Inspection Ears: Normal External Exam, Hearing Grossly Normal Nose: Normal Inspection Throat/Mouth: Normal Inspection, Normal Voice, No Airway Compromise Head: Atraumatic, Normocephalic Neck: Normal Inspection, Supple, Non-Tender, Full Range of Motion Respiratory/Chest: No Respiratory Distress, Lungs Clear, Normal Breath Sounds, No Accessory Muscle Use, Chest Non-Tender Cardiovascular: Normal Peripheral Pulses, Regular Rate, Rhythm, No Edema, No Gallop, No JVD, No Murmur, No Rub GI/Abdominal: Normal Bowel Sounds, Soft, Non-Tender, No Organomegaly, No Distention, No Abnormal Bruit, No Mass (Male) Exam: Deferred Rectal (Males) Exam: Deferred Back Exam: Normal Inspection, Full Range of Motion, NT Extremities: Normal Inspection, Normal Range of Motion, Non-Tender, Normal Capillary Refill, No Pedal Edema Neurological: Alert, Normal Mood/Affect, Normal Gait, Oriented x 3 Psychiatric: Alert, Normal Affect, Normal Cognition, Normal Mood, Oriented, De pressed Mood, Flat Affect, Tearful Skin Exam: Warm, Dry, Intact, Normal color, No rash COURSE, BEHAVIORAL HEALTH COMP - Course Vital Signs: Last Vital Signs Temp 98.5 F 12/11/19 07:13 Pulse 122 H 12/11/19 07:13 Resp 20 12/11/19 07:13 BP 156/115 H 12/11/19 07:13 Pulse Ox 98 12/11/19 07:13 Orders, Labs, Meds: Active Orders 24 hr Category Date Time Status Admission Diagnosis [ADT] Stat ADT 12/11/19 08:05 Ordered Admission Status [Patient Status] [ADT] Routine ADT 12/11/19 08:05 Ordered EKG Documentation Completion [RC] STAT Care 12/11/19 07:11 Active DRUG SCREEN URINE BIORAD [URCHEM] Stat Lab 12/11/19 07:11 Ordered MVI, Adult with Vitamin K [Infuvite Adult] 10 ml Med 12/11/19 07:43 Active Folic Acid 1 mg Thiamine [Vitamin B-1] 100 mg Lactated Ringers [Ringers, Lactated] 1,000 ml IV ONETIME Medication Orders Multivitamins/Minerals 10 ml/Folic Acid 1 mg/ Thiamine HCl 100 mg/ Lactated Ringer's 1,011.2 mls @ 999 mls/hr IV ONETIME ONE Stop: 12/11/19 08:43 Last Admin: 12/11/19 08:04 Dose: 999 mls/hr Documented by: Laboratory Tests 12/11/19 12/11/19 Range/Units 07:18 07:18 WBC 7.1 (5.0-10.0) 10^3/uL RBC 4.78 (4.6-6.2) 10^6/uL Hgb 14.5 (14.0-18.0) g/dL Hct 42.0 (40.0-54.0) % MCV 87.9 (80-100) fL MCH 30.3 (27.0-34.0) pg MCHC 34.5 (33.0-35.0) g/dL Plt Count 278 (150-450) 10^3/uL Neut % (Auto) 37.3 L (42.2-75.2) % Lymph % (Auto) 51.6 H (20.5-50.1) % [place] % (Auto) 8.6 H (2-8) % Eos % (Auto) 1.7 (1.0-3.0) % Baso % (Auto) 0.8 (0.0-1.0) % Sodium 140 (136-145) mmol/L Potassium 3.4 L (3.5-5.1) mmol/L Chloride 103 (98-107) mmol/L Carbon Dioxide 25 (21-32) mmol/L Anion Gap 15.4 H (7-13) mEq/L BUN 14 (7-18) mg/dL Creatinine 0.85 (0.70-1.30) mg/dL Est Cr Clr Drug Dosing 118.81 mL/min Estimated GFR (MDRD) > 60 BUN/Creatinine Ratio 16.5 (No establ ref range) Glucose 108 H (74-99) mg/dL Calcium 8.2 L (8.5-10.1) mg/dL Total Bilirubin 0.5 (0.2-1.0) mg/dL AST 23 (15-37) U/L ALT 29 (16-63) U/L Alkaline Phosphatase 74 (46-116) U/L Troponin I < 0.017 (0.000-0.056) ng/mL Total Protein 7.8 (6.4-8.2) g/dL Albumin 3.6 (3.4-5.0) g/dL Globulin 4.2 Albumin/Globulin Ratio 0.9 Ethyl Alcohol 81 (0) mg/dL Medications Generic Name Dose Route Start Last Admin Trade Name Freq PRN Reason Stop Dose Admin Multivitamins/Minerals 10 ml/ 1,011.2 mls @ 999 mls/hr 12/11/19 07:43 12/11/19 08:04 Folic Acid 1 mg/ Thiamine HCl IV 12/11/19 08:43 999 mls/hr 100 mg/ Lactated Ringer's ONETIME ONE Administration Discontinued Medications Generic Name Dose Route Start Last Admin Trade Name Freq PRN Reason Stop Dose Admin Lorazepam 1 mg 12/11/19 07:43 12/11/19 08:01 Ativan IVPUSH 12/11/19 07:44 1 mg ONETIME ONE Administration Discharge vs Psych Eval/Treatment:: 12/11/19 08:06 Discussed patient case with Dr. Collier who agreed to accept the patient for inpatient admission. Departure - Departure Time of Disposition: 08:06 Disposition: Admitted As Inpatient 65 Condition: Fair Clinical Impression: Alcohol withdrawal syndrome Qualifiers: Complication of substance-induced condition: uncomplicated Qualified Code(s): F10.230 - Alcohol dependence with withdrawal, uncomplicated - Discharge Information *PRESCRIPTION DRUG MONITORING PROGRAM REVIEWED*: No *COPY OF PRESCRIPTION DRUG MONITORING REPORT IN PATIENT POLO: No Forms: ED Department Discharge Sepsis Event Note (ED) - Evaluation Sepsis Screening Result: No Definite Risk - Focused Exam Vital Signs: Vital Signs Temp Pulse Resp BP Pulse Ox 12/11/19 07:13 98.5 F 122 H 20 156/115 H 98 - My Orders Last 24 Hours: My Active Orders 12/11/19 07:11 EKG Documentation Completion [RC] STAT DRUG SCREEN URINE BIORAD [URCHEM] Stat 12/11/19 07:43 MVI, Adult with Vitamin K [Infuvite Adult] 10 ml Folic Acid 1 mg Thiamine [Vitamin B-1] 100 mg Lactated Ringers [Ringers, Lactated] 1,000 ml IV ONETIME 12/11/19 08:05 Admission Diagnosis [ADT] Stat Admission Status [Patient Status] [ADT] Routine - Assessment/Plan Last 24 Hours: My Active Orders 12/11/19 07:11 EKG Documentation Completion [RC] STAT DRUG SCREEN URINE BIORAD [URCHEM] Stat 12/11/19 07:43 MVI, Adult with Vitamin K [Infuvite Adult] 10 ml Folic Acid 1 mg Thiamine [Vitamin B-1] 100 mg Lactated Ringers [Ringers, Lactated] 1,000 ml IV ONETIME 12/11/19 08:05 Admission Diagnosis [ADT] Stat Admission Status [Patient Status] [ADT] Routine
[2019-12-11] MEDS ORDERED: MVI, Adult with Vitamin K 10 ML, Folic Acid 1 MG, Thiamine 100 MG in Lactated Ringers 1... IV ONE ×4 (07:43)
[2019-12-11] MEDS ORDERED: LORazepam 2 MG/ML SDV IVPUSH ONE (07:43)
[2019-12-11 07:45] LABS: ANION GAP 15.4 mEq/L (7-13); CHLORIDE,CL 103 mmol/L (98-107); SODIUM,NA 140 mmol/L (136-145)
[2019-12-11] MEDS ORDERED: Ondansetron 4 MG Tab.DIS PO PRN (09:59)
[2019-12-11] MEDS ORDERED: Docusate Sodium 100 MG Cap PO PRN (09:59)
[2019-12-11] MEDS ORDERED: LORazepam 2 MG/ML SDV IV PRN (10:02)
[2019-12-11] MEDS ORDERED: Potassium Chloride 10 MEQ Tab.ER PO ONE (10:05)
[2019-12-11] MEDS: Sodium Chloride 0.9% 1,000 ML IV SCH ×2 (10:29→18:33)
[2019-12-11] MEDS: LORazepam 0.5 MG Tab PO PRN ×2 (10:34→16:09)
--- NOTE | 2019-12-11 13:17 | HP ---
CHIEF COMPLAINT: Anxiety and chest pain. HISTORY OF PRESENT ILLNESS: The patient is a 29-year-old male who was admitted through the emergency room because the patient was complaining of chest pain that is not related to exertion and also some palpitation and anxiety from alcohol withdrawal. The patient admits that he is a regular drinker and last drink was yesterday afternoon. The patient denies though any fever or any chills, orthopnea, PND, shortness of breath, abdominal pain, melena, hematochezia, nor any other complaints. The patient mentioned that he wanted to quit drinking and wanted some help. PAST MEDICAL HISTORY: Remarkable for gastroesophageal reflux, esophageal tear, alcoholism, and anxiety. FAMILY HISTORY: Noncontributory. SOCIAL HISTORY: The patient is a nonsmoker and denies any illicit drug use, but drinks alcohol on a regular basis 7 days per week about 6 drinks per day. HOME MEDICATIONS: None. ALLERGIES: No known drug allergies. REVIEW OF SYSTEMS: As in HPI. The rest of the review of systems is negative. PHYSICAL EXAMINATION: General: The patient is alert and oriented, not in any acute distress. Vital Signs: Blood pressure is 156/115, pulse of 122, respirations of 20, temperature of 98.5, saturation is 98%. HEENT: Normocephalic. There are pink palpebral conjunctivae. Sclerae anicteric. Neck: No JVD. No lymphadenopathy. Heart: Regular rate and rhythm. Slightly tachycardic. No gallops. No rubs. Lungs: Equal bilaterally. No crackles, no wheezing. Abdomen: Soft, nontender. Bowel sounds positive. Extremities: Negative for any pedal edema. No calf tenderness. LABORATORY WORKUP: CBC unremarkable. Comp panel: Potassium is 3.4, anion gap of 15.4, glucose is 108, calcium is 8.2. The rest of the panel unremarkable. Troponin is less than 0.017. Alcohol level is 881. ADMITTING DIAGNOSES: 1. Alcohol withdrawal syndrome. 2. Anxiety. 3. Hypokalemia. TREATMENT PLAN: The patient is going to be admitted to Acute Care, General Medicine floor. He will be placed on DT protocol, and Conditioner Tumbler Operator will be consulted for discharge planning and alcohol treatment upon discharge. [facility] /[id number]
[2019-12-12] MEDS: LORazepam 0.5 MG Tab PO PRN ×2 (00:21→12:13)
[2019-12-12] MEDS: Sodium Chloride 0.9% 1,000 ML IV SCH ×3 (02:38→18:39)
[2019-12-12 06:56] LABS: ANION GAP 12.7 mEq/L (7-13); CHLORIDE,CL 103 mmol/L (98-107); SODIUM,NA 138 mmol/L (136-145)
[2019-12-12] MEDS: Enoxaparin 40 MG/0.4 ML Syringe SUBCUT SCH (08:57)
[2019-12-12] MEDS: Acetaminophen 325 MG Tab PO PRN ×2 (08:58→18:38)
[2019-12-12] MEDS: Multivitamins,Therapeutic Tab PO SCH (08:58)
[2019-12-12] MEDS: Thiamine 100 MG Tab PO SCH (08:58)
[2019-12-12] MEDS: Folic Acid 1 MG Tab PO SCH (08:58)
--- NOTE | 2019-12-12 15:51 | PCM.PN ---
- General Info Date of Service: 12/12/19 Subjective Update: Seen and examined this morning. He has no new complaints. He still requiring Ativan for withdrawal symptoms. - Review of Systems General: Reports: No Symptoms HEENT: Reports: No Symptoms Pulmonary: Reports: No Symptoms Cardiovascular: Reports: No Symptoms Gastrointestinal: Reports: No Symptoms Genitourinary: Reports: No Symptoms Musculoskeletal: Reports: No Symptoms Skin: Reports: No Symptoms Neurological: Reports: No Symptoms Psychiatric: Reports: No Symptoms - Patient Data Vitals - Most Recent: Last Vital Signs Temp 98.4 F 12/12/19 12:00 Pulse 78 12/12/19 12:00 Resp 20 12/12/19 12:00 BP 138/92 H 12/12/19 12:00 Pulse Ox 99 12/12/19 12:00 Weight - Most Recent: 210 lb 6.4 oz I&O - Last 24 Hours: Intake & Output 12/12/19 12/12/19 12/12/19 06:59 14:59 22:59 Intake Total 1402 Balance 1402 Lab Results Last 24 Hours: Laboratory Results - last 24 hr 12/12/19 Range/Units 06:10 Sodium 138 (136-145) mmol/L Potassium 3.7 (3.5-5.1) mmol/L Chloride 103 (98-107) mmol/L Carbon Dioxide 26 (21-32) mmol/L Anion Gap 12.7 (7-13) mEq/L BUN 9 (7-18) mg/dL Creatinine 0.69 L (0.70-1.30) mg/dL Est Cr Clr Drug Dosing 146.36 mL/min Estimated GFR (MDRD) > 60 Glucose 92 (74-99) mg/dL Calcium 8.3 L (8.5-10.1) mg/dL Magnesium 2.0 (1.8-2.4) mg/dL Med Orders - Current: Current Medications Acetaminophen (Tylenol) 650 mg PO Q4H PRN PRN Reason: Pain (Mild 1-3)/fever Last Admin: 12/12/19 08:58 Dose: 650 mg Documented by: Docusate Sodium (Colace) 100 mg PO BID PRN PRN Reason: Constipation Enoxaparin Sodium (Lovenox) 40 mg SUBCUT DAILY [facility] Last Admin: 12/12/19 08:57 Dose: 40 mg Documented by: Folic Acid (Folic Acid) 1 mg PO DAILY [facility] Stop: 12/14/19 09:01 Last Admin: 12/12/19 08:58 Dose: 1 mg Documented by: Sodium Chloride (Normal Saline) 1,000 mls @ 125 mls/hr IV ASDIRECTED [facility] Last Admin: 12/12/19 10:35 Dose: 125 mls/hr Documented by: Influenza Virus Vaccine (Pharmacy To Dose - Influenza Vaccine) 1 each IM ONET ANJEL ONE Stop: 12/11/19 09:02 Lorazepam (Ativan) 0 mg IV TITRATE PRN; Protocol PRN Reason: alcohol withdrawal Lorazepam (Ativan) 0 mg PO TITRATE PRN; Protocol PRN Reason: alcohol withdrawal Last Admin: 12/12/19 12:13 Dose: 1 mg Documented by: Multivitamins (Thera) 1 each PO DAILY [facility] Last Admin: 12/12/19 08:58 Dose: 1 each Documented by: Ondansetron HCl (Zofran Odt) 4 mg PO Q4H PRN PRN Reason: nausea, able to take PO Thiamine HCl (Vitamin B-1) 100 mg PO DAILY [facility] Last Admin: 12/12/19 08:58 Dose: 100 mg Documented by: Discontinued Medications Multivitamins/Minerals 10 ml/Folic Acid 1 mg/ Thiamine HCl 100 mg/ Lactated Ringer's 1,011.2 mls @ 999 mls/hr IV ONETIME ONE Stop: 12/11/19 08:43 Last Admin: 12/11/19 08:04 Dose: 999 mls/hr Documented by: Lorazepam (Ativan) 1 mg IVPUSH ONETIME ONE Stop: 12/11/19 07:44 Last Admin: 12/11/19 08:01 Dose: 1 mg Documented by: Potassium Chloride (Klor-Con 10) 40 meq PO ONETIME ONE Stop: 12/11/19 10:06 Last Admin: 12/11/19 10:29 Dose: 40 meq Documented by: - Exam General: Alert, Oriented HEENT: Pupils Equal, Pupils Reactive, EOMI, Mucous Membr. Moist/[place] Neck: Supple Lungs: Clear to Auscultation, Normal Respiratory Effort Cardiovascular: Regular Rate, Regular Rhythm GI/Abdominal Exam: Normal Bowel Sounds, Soft, Non-Tender, No Organomegaly, No Distention, No Abnormal Bruit, No Mass, Pelvis Stable Back Exam: Normal Inspection, Full Range of Motion Extremities: Normal Inspection, Normal Range of Motion, Non-Tender, No Pedal Edema, Normal Capillary Refill Skin: Warm, Dry, Intact Neurological: No New Focal Deficit Psy/Mental Status: Alert, Normal Affect, Normal Mood Sepsis Event Note - Evaluation Sepsis Screening Result: No Definite Risk - Focused Exam Vital Signs: Vital Signs Temp Pulse Resp BP BP Pulse Ox Pulse Ox 12/12/19 12:00 98.4 F 78 20 138/92 H 99 12/12/19 09:59 96 12/12/19 08:00 98.3 F 76 20 140/99 H 99 - Problem List Review Problem List Initiated/Reviewed/Updated: Yes - My Orders Last 24 Hours: My Active Orders 12/12/19 13:20 Antiembolic Devices [RC] PER UNIT ROUTINE YOHANA Hose [Antiembolic Hose] [OM.PC] Routine - Plan Plan:: Patient is a 29-year-old male admitted with alcohol withdrawal. Alcohol abuse disorder Alcohol withdrawals Anxiety Continue CIWA protocol: Patient still requiring Ativan Counseled on alcohol cessation Hypokalemia Replaced potassium
[2019-12-13] MEDS: Sodium Chloride 0.9% 1,000 ML IV SCH (02:43)
[2019-12-13] MEDS: Enoxaparin 40 MG/0.4 ML Syringe SUBCUT SCH (09:18)
[2019-12-13] MEDS: Multivitamins,Therapeutic Tab PO SCH (09:18)
[2019-12-13] MEDS: Folic Acid 1 MG Tab PO SCH (09:18)
[2019-12-13] MEDS: Thiamine 100 MG Tab PO SCH (09:18)
--- NOTE | 2019-12-13 10:41 | PCM.DCSUM1 ---
Discharge Summary - Hospital Course Free Text/Narrative:: Patient is a 29-year-old male who was admitted with alcohol withdrawal symptoms and hypokalemia. Patient was treated per [facility] protocol which improvement with symptoms. Hypokalemia was treated by potassium replacement. Patient was counseled on alcohol cessation and provided with information and resources for treatment. Patient was receptive and he will follow-up with outpatient treatment. Diagnosis: Stroke: No - Discharge Data Discharge Date: 12/13/19 Discharge Disposition: Home, Self-Care 01 Condition: Good - Referral to Home Health Primary Care Physician: [facility] - Patient Summary/Data Consults: Consultations 12/11/19 10:04 Consult to Case Management/Seed Cutter [CONS] Routine - Patient Instructions Diet: Regular Diet as Tolerated Activity: As Tolerated - Discharge Plan *PRESCRIPTION DRUG MONITORING PROGRAM REVIEWED*: Not Applicable *COPY OF PRESCRIPTION DRUG MONITORING REPORT IN PATIENT POLO: Not Applicable Home Medications: Home Meds . [No Known Home Meds] 09/22/17 [History] Oxygen Therapy Mode: Room Air Patient Handouts: Alcohol Use Disorder, Alcohol Withdrawal Syndrome, Alcohol Intoxication, [id number], Living With Anxiety Referrals: [facility] [Ordering Only Provider] - - Discharge Summary/Plan Comment DC Time >30 min.: Yes - General Info Date of Service: 12/13/19 Admission Dx/Problem (Free Text: Alcohol withdrawal, alcoholic gastritis and hypokalemia Subjective Update: Seen and examined this morning. He has no new complaints. No longer requiring Ativan for withdrawal symptoms. Functional Status: Reports: Pain Controlled - Review of Systems General: Reports: No Symptoms HEENT: Reports: No Symptoms Pulmonary: Reports: No Symptoms Cardiovascular: Reports: No Symptoms Gastrointestinal: Reports: No Symptoms Genitourinary: Reports: No Symptoms Musculoskeletal: Reports: No Symptoms Skin: Reports: No Symptoms Neurological: Reports: No Symptoms Psychiatric: Reports: No Symptoms - Patient Data Vitals - Most Recent: Last Vital Signs Temp 97.2 F 12/13/19 07:44 Pulse 89 12/13/19 07:44 Resp 18 12/13/19 07:44 BP 135/89 12/13/19 07:44 Pulse Ox 100 12/13/19 09:00 Weight - Most Recent: 210 lb 6.4 oz I&O - Last 24 hours: Intake & Output 12/12/19 12/13/19 12/13/19 22:59 06:59 14:59 Intake Total 420 9888 980 Output Total 1220 500 Balance -800 1428 980 Med Orders - Current: Current Medications Acetaminophen (Tylenol) 650 mg PO Q4H PRN PRN Reason: Pain (Mild 1-3)/fever Last Admin: 12/12/19 18:38 Dose: 650 mg Documented by: Docusate Sodium (Colace) 100 mg PO BID PRN PRN Reason: Constipation Enoxaparin Sodium (Lovenox) 40 mg SUBCUT DAILY [facility] Last Admin: 12/13/19 09:18 Dose: 40 mg Documented by: Folic Acid (Folic Acid) 1 mg PO DAILY [facility] Stop: 12/14/19 09:01 Last Admin: 12/13/19 09:18 Dose: 1 mg Documented by: Sodium Chloride (Normal Saline) 1,000 mls @ 125 mls/hr IV ASDIRECTED [facility] Last Admin: 12/13/19 02:43 Dose: 125 mls/hr Documented by: Influenza Virus Vaccine (Pharmacy To Dose - Influenza Vaccine) 1 each IM ONETIME ONE Stop: 12/11/19 09:02 Lorazepam (Ativan) 0 mg IV TITRATE PRN; Protocol PRN Reason: alcohol withdrawal Lorazepam (Ativan) 0 mg PO TITRATE PRN; Protocol PRN Reason: alcohol withdrawal Last Admin: 12/12/19 12:13 Dose: 1 mg Documented by: Multivitamins (Thera) 1 each PO DAILY [facility] Last Admin: 12/13/19 09:18 Dose: 1 each Documented by: Ondansetron HCl (Zofran Odt) 4 mg PO Q4H PRN PRN Reason: nausea, able to take PO Thiamine HCl (Vitamin B-1) 100 mg PO DAILY [facility] Last Admin: 12/13/19 09:18 Dose: 100 mg Documented by: Discontinued Medications Multivitamins/Minerals 10 ml/Folic Acid 1 mg/ Thiamine HCl 100 mg/ Lactated Ringer's 1,011.2 mls @ 999 mls/hr IV ONETIME ONE Stop: 12/11/19 08:43 Last Admin: 12/11/19 08:04 Dose: 999 mls/hr Documented by: Lorazepam (Ativan) 1 mg IVPUSH ONETIME ONE Stop: 12/11/19 07:44 Last Admin: 12/11/19 08:01 Dose: 1 mg Documented by: Potassium Chloride (Klor-Con 10) 40 meq PO ONETIME ONE Stop: 12/11/19 10:06 Last Admin: 12/11/19 10:29 Dose: 40 meq Documented by: - Exam General: Reports: Alert, Oriented HEENT: Reports: Pupils Equal, Pupils Reactive, EOMI, Mucous Membr. Moist/[place] Neck: Reports: Supple Lungs: Reports: Clear to Auscultation, Normal Respiratory Effort Cardiovascular: Reports: Regular Rate, Regular Rhythm GI/Abdominal Exam: Normal Bowel Sounds, Soft, Non-Tender, No Organomegaly, No Distention, No Abnormal Bruit, No Mass, Pelvis Stable Back Exam: Reports: Normal Inspection, Full Range of Motion Extremities: Normal Inspection, Normal Range of Motion, Non-Tender, No Pedal Edema, Normal Capillary Refill Skin: Reports: Warm, Dry, Intact Neurological: Reports: No New Focal Deficit Psy/Mental Status: Reports: Alert, Normal Affect, Normal Mood
== END 2019-12-13 10:45 | disposition home or self-care (01) | DRG 897 ==
LOC: DL.ED 07:03 → DL.MS 08:05
PROVIDERS: ADMIT Internal Medicine; ATTEND Internal Medicine
DX: F10.239 Alcohol dependence with withdrawal, unspecified (principal); E87.6 Hypokalemia; K29.20 Alcoholic gastritis without bleeding; Y90.8 Blood alcohol level of 240 mg/100 ml or more; F41.9 Anxiety disorder, unspecified; K21.9 Gastro-esophageal reflux disease without esophagitis
CPT/HCPCS: 36415; 80048; 80053; 80305-QW; 80307; 83735; 84484; 85025; 93005; A9270-GY; J1650; J2060; J3411; J3490; J7030; J7120

== ENCOUNTER 2020-01-12 08:34 | Emergency (ER) | payer OTHER ==
[2020-01-12] MEDS ORDERED: Sodium Chloride 0.9% 10 ML Syringe FLUSH PRN (08:53)
[2020-01-12] MEDS ORDERED: Sodium Chloride 0.9% 1,000 ML IV ONE (08:54)
[2020-01-12] MEDS ORDERED: Ondansetron 4 MG/2 ML SDV IVPUSH ONE (08:54)
--- NOTE | 2020-01-12 08:57 | EDM.PDOC ---
ED HPI GENERAL MEDICAL PROBLEM - General Chief Complaint: Drug or Alcohol Abuse Stated Complaint: [id number] WITHDRAWL FROM ALCOHOL Time Seen by Provider: 01/12/20 08:51 Source of Information: Reports: Patient History Limitations: Reports: No Limitations - History of Present Illness INITIAL COMMENTS - FREE TEXT/NARRATIVE: Patient is here for alcohol withdrawal. He has been drinking heavily for 2 days and quit last night around 11pm. He has had withdrawal before. He denies any previous seizures. He notes nausea, shakiness, nervousness and chest pain. The pain is central and does not radiate. It is pain similar to his previous withdrawal. Onset: Today Duration: Getting Worse Location: Reports: Generalized Severity: Mild Improves with: Reports: None Chest Pain Score (Numeric/FACES): 2 - Related Data Allergies Allergy/AdvReac Type Severity Reaction Status Date / Time No Known Allergies Allergy Verified 01/12/20 08:46 Home Meds: Home Meds . [No Known Home Meds] 09/22/17 [History] Past Medical History HEENT History: Reports: None Cardiovascular History: Reports: None Respiratory History: Reports: None Gastrointestinal History: Reports: GERD, Other (See Below) Other Gastrointestinal History: Reoprts "esophageal tear that resolved on its own" Genitourinary History: Reports: None Musculoskeletal History: Reports: None Neurological History: Reports: None Psychiatric History: Reports: Addiction, Anxiety, Depression Endocrine/Metabolic History: Reports: None Hematologic History: Reports: None Immunologic History: Reports: None Oncologic (Cancer) History: Reports: None Dermatologic History: Reports: None - Infectious Disease History Infectious Disease History: Reports: None Social & Family History - Family History Family Medical History: Noncontributory - Tobacco Use Tobacco Use Status *Q: Never Tobacco User - Caffeine Use Caffeine Use: Reports: Coffee - Alcohol Use Days Per Week of Alcohol Use: 7 Number of Drinks Per Day: 3 Total Drinks Per Week: 21 - Recreational Drug Use Recreational Drug Use: No - Living Situation & Occupation Living situation: Reports: with Family Occupation: Employed ED ROS GENERAL - Review of Systems Review Of Systems: Comprehensive ROS is negative, except as noted in HPI. ED EXAM, GENERAL - Physical Exam Exam: See Below Exam Limited By: No Limitations General Appearance: Alert, WD/WN, No Apparent Distress Eye Exam: Bilateral Eye: Normal Inspection Head: Atraumatic, Normocephalic Neck: Normal Inspection, Supple Respiratory/Chest: No Respiratory Distress, Lungs Clear, Normal Breath Sounds, No Accessory Muscle Use, Chest Non-Tender Cardiovascular: Normal Peripheral Pulses, Regular Rate, Rhythm, No Edema, No Murmur GI/Abdominal: Soft, Non-Tender, No Distention, No Mass. No: Guarding, Rebound Extremities: Normal Inspection, Normal Range of Motion, Non-Tender Neurological: Alert, Oriented, Normal Cognition, Normal Gait, No Motor/Sensory Deficits Psychiatric: Normal Affect, Normal Mood Skin Exam: Warm, Dry, Intact, Normal Color, No Rash Lymphatic: No Adenopathy Course - Vital Signs Last Recorded V/S: Last Vital Signs Temp 97.7 F 01/12/20 08:44 Pulse 97 01/12/20 08:44 Resp 16 01/12/20 08:44 BP 129/87 01/12/20 08:44 Pulse Ox 95 01/12/20 08:44 - Orders/Labs/Meds Orders: Active Orders 24 hr Category Date Time Status EKG Documentation Completion [RC] STAT Care 01/12/20 08:53 Active Peripheral IV Care [RC] . DIRECTED Care 01/12/20 08:54 Active DRUG SCREEN, URINE [URCHEM] Stat Lab 01/12/20 08:53 Ordered ETOH [ETHANOL BLOOD MEDICAL] [CHEM] Stat Lab 01/12/20 10:29 Ordered Sodium Chloride 0.9% [Saline Flush] Med 01/12/20 08:53 Active 10 ml FLUSH ASDIRECTED PRN Peripheral IV Insertion Adult [OM.PC] Stat Oth 01/12/20 08:53 Ordered Medication Orders Sodium Chloride (Saline Flush) 10 ml FLUSH ASDIRECTED PRN PRN Reason: Keep Vein Open Last Admin: 01/12/20 08:59 Dose: 10 ml Documented by: BARBIE Labs: Laboratory Tests 01/12/20 01/12/20 Range/Units 09:03 09:03 WBC 5.2 (5.0-10.0) 10^3/uL RBC 4.39 L (4.6-6.2) 10^6/uL Hgb 13.4 L (14.0-18.0) g/dL Hct 39.5 L (40.0-54.0) % MCV 90.0 (80-100) fL MCH 30.5 (27.0-34.0) pg MCHC 33.9 (33.0-35.0) g/dL Plt Count 259 (150-450) 10^3/uL Neut % (Auto) 32.1 L (42.2-75.2) % Lymph % (Auto) 52.8 H (20.5-50.1) % [place] % (Auto) 8.4 H (2-8) % Eos % (Auto) 5.0 H (1.0-3.0) % Baso % (Auto) 1.7 H (0.0-1.0) % Sodium 141 (136-145) mmol/L Potassium 3.6 (3.5-5.1) mmol/L Chloride 103 (98-107) mmol/L Carbon Dioxide 30 (21-32) mmol/L Anion Gap 11.6 (7-13) mEq/L BUN 9 (7-18) mg/dL Creatinine 0.91 (0.70-1.30) mg/dL Est Cr Clr Drug Dosing 107.11 mL/min Estimated GFR (MDRD) > 60 BUN/Creatinine Ratio 9.9 (No establ ref range) Glucose 110 H (74-99) mg/dL Calcium 8.2 L (8.5-10.1) mg/dL Total Bilirubin 0.2 (0.2-1.0) mg/dL AST 34 (15-37) U/L ALT 40 (16-63) U/L Alkaline Phosphatase 86 (46-116) U/L Troponin I < 0.017 (0.000-0.056) ng/mL Total Protein 7.4 (6.4-8.2) g/dL Albumin 3.6 (3.4-5.0) g/dL Globulin 3.8 Albumin/Globulin Ratio 0.9 Ethyl Alcohol 274 (0) mg/dL Meds: Medications Generic Name Dose Route Start Last Admin Trade Name Freq PRN Reason Stop Dose Admin Sodium Chloride 10 ml 01/12/20 08:53 01/12/20 08:59 Saline Flush FLUSH 10 ml ASDIRECTED PRN Administration Keep Vein Open Discontinued Medications Generic Name Dose Route Start Last Admin Trade Name Freq PRN Reason Stop Dose Admin Al Hydroxide/Mg Hydroxide 30 ml 01/12/20 09:47 01/12/20 09:51 Gi Cocktail PO 01/12/20 09:48 30 ml ONETIME ONE Administration Sodium Chloride 1,000 mls @ 999 mls/hr 01/12/20 08:54 01/12/20 08:59 Normal Saline IV 01/12/20 09:54 999 mls/hr .BOLUS ONE Administration Ondansetron HCl 4 mg 01/12/20 08:54 01/12/20 08:59 Zofran IVPUSH 01/12/20 08:55 4 mg ONETIME ONE Administration Departure - Departure Time of Disposition: 11:04 Disposition: Eloped 07 Condition: Good Clinical Impression: Alcohol withdrawal syndrome Qualifiers: Complication of substance-induced condition: uncomplicated Qualified Code(s): F10.230 - Alcohol dependence with withdrawal, uncomplicated - Discharge Information *PRESCRIPTION DRUG MONITORING PROGRAM REVIEWED*: Not Applicable *COPY OF PRESCRIPTION DRUG MONITORING REPORT IN PATIENT POLO: Not Applicable Instructions: Alcohol Use Disorder, Alcohol Withdrawal Syndrome, [id number] Forms: ED Department Discharge Additional Instructions: Discharge to [facility] for withdrawal Ativan protocol ordered Follow up with PCP in 3-5 days -----Pt removed his IV and left while awaiting [facility] transport----- Sepsis Event Note (ED) - Evaluation Sepsis Screening Result: No Definite Risk - Focused Exam Vital Signs: Vital Signs Temp Pulse Resp BP Pulse Ox 01/12/20 08:44 97.7 F 97 16 129/87 95 - My Orders Last 24 Hours: My Active Orders 01/12/20 08:53 EKG Documentation Completion [RC] STAT DRUG SCREEN, URINE [URCHEM] Stat Sodium Chloride 0.9% [Saline Flush] 10 ml FLUSH ASDIRECTED PRN Peripheral IV Insertion Adult [OM.PC] Stat 01/12/20 08:54 Peripheral IV Care [RC] . DIRECTED 01/12/20 10:29 ETOH [ETHANOL BLOOD MEDICAL] [CHEM] Stat - Assessment/Plan Last 24 Hours: My Active Orders 01/12/20 08:53 EKG Documentation Completion [RC] STAT DRUG SCREEN, URINE [URCHEM] Stat Sodium Chloride 0.9% [Saline Flush] 10 ml FLUSH ASDIRECTED PRN Peripheral IV Insertion Adult [OM.PC] Stat 01/12/20 08:54 Peripheral IV Care [RC] . DIRECTED 01/12/20 10:29 ETOH [ETHANOL BLOOD MEDICAL] [CHEM] Stat
[2020-01-12 09:35] LABS: ANION GAP 11.6 mEq/L (7-13); CHLORIDE,CL 103 mmol/L (98-107); SODIUM,NA 141 mmol/L (136-145)
[2020-01-12] MEDS ORDERED: GI Cocktail Oral Solution 30 ML PO ONE (09:47)
== END 2020-01-12 11:17 | disposition left against medical advice (07) ==
LOC: DL.ED 08:34
DX: F10.230 Alcohol dependence with withdrawal, uncomplicated (principal); Y90.8 Blood alcohol level of 240 mg/100 ml or more
CPT/HCPCS: 36415; 80053; 80307; 84484; 85025; 93005; 96374; 99285; A9270; J2405; J7030; 99283

== ENCOUNTER 2020-01-17 05:55 | Emergency (ER) | payer OTHER ==
[2020-01-17] MEDS ORDERED: MVI, Adult with Vitamin K 10 ML, Folic Acid 1 MG, Thiamine 100 MG in Lactated Ringers 1... IV ONE ×4 (05:59)
[2020-01-17 06:33] LABS: ANION GAP 15.6 mEq/L (7-13); CHLORIDE,CL 100 mmol/L (98-107); SODIUM,NA 139 mmol/L (136-145)
--- NOTE | 2020-01-17 06:52 | EDM.PDOCBH ---
<Natalie Sawyer - Last Filed: 01/17/20 06:44> ED HPI GENERAL MEDICAL PROBLEM - General Chief Complaint: Drug or Alcohol Abuse Stated Complaint: ALCOHOL WITHDRAWLS/ANXIETY Time Seen by Provider: 01/17/20 06:15 Source of Information: Reports: Patient, RN History Limitations: Reports: No Limitations - History of Present Illness INITIAL COMMENTS - FREE TEXT/NARRATIVE: ED ambulatory with c/o alcohol withdrawal. Last drink midnight. states drinking daily for past week at least qt per day. No prior treatments. Recent hospitalization in November noted recommendation for outpatient and has not followed up. No abdominal pain or vomiting. - Related Data Allergies Allergy/AdvReac Type Severity Reaction Status Date / Time No Known Allergies Allergy Verified 01/12/20 08:46 Home Meds: Home Meds . [No Known Home Meds] 09/22/17 [History] Past Medical History HEENT History: Reports: None Cardiovascular History: Reports: None Respiratory History: Reports: None Gastrointestinal History: Reports: GERD, Other (See Below) Other Gastrointestinal History: Reoprts "esophageal tear that resolved on its own" Genitourinary History: Reports: None Musculoskeletal History: Reports: None Neurological History: Reports: None Psychiatric History: Reports: Addiction, Anxiety, Depression Endocrine/Metabolic History: Reports: None Hematologic History: Reports: None Immunologic History: Reports: None Oncologic (Cancer) History: Reports: None Dermatologic History: Reports: None - Infectious Disease History Infectious Disease History: Reports: None Social & Family History - Family History Family Medical History: Noncontributory - Tobacco Use Tobacco Use Status *Q: Current Status Unknown Second Hand Smoke Exposure: Yes - Caffeine Use Caffeine Use: Reports: Soda - Alcohol Use Date of Last Drink: 01/17/20 - Recreational Drug Use Recreational Drug Use: No - Living Situation & Occupation Living situation: Reports: with Family Occupation: Employed ED ROS GENERAL - Review of Systems Review Of Systems: Comprehensive ROS is negative, except as noted in HPI. ED EXAM, BEHAVIORAL HEALTH - Physical Exam Exam: See Below Exam Limited By: No Limitations General Appearance: Alert, Mild Distress Eye Exam: Bilateral Eye: EOMI, PERRL Ears: Normal External Exam Nose: Normal Inspection Throat/Mouth: Normal Inspection Head: Atraumatic, Normocephalic Neck: Normal Inspection Respiratory/Chest: No Respiratory Distress Cardiovascular: Normal Peripheral Pulses, Regular Rate, Rhythm GI/Abdominal: Normal Bowel Sounds Back Exam: Normal Inspection Extremities: Normal Inspection, Normal Range of Motion Neurological: Alert, Oriented x 3. No: Tremor Psychiatric: Flat Affect Skin Exam: Warm, Dry, Intact Departure - Departure Disposition: Home, Self-Care 01 Clinical Impression: Alcohol abuse Alcohol intoxication Qualifiers: Complication of substance-induced condition: uncomplicated Qualified Code(s): F10.920 - Alcohol use, unspecified with intoxication, uncomplicated - Discharge Information Forms: ED Department Discharge Additional Instructions: Follow up with outpatient alcohol detox treatment center. Refrain from drinking alcohol to excess. Sepsis Event Note (ED) - Evaluation Sepsis Screening Result: No Definite Risk <Mary Varela - Last Filed: 01/17/20 08:04> COURSE, BEHAVIORAL HEALTH COMP - Course Vital Signs: Last Vital Signs Temp 97.9 F 01/17/20 06:00 Pulse 102 H 01/17/20 06:00 Resp 19 01/17/20 06:00 BP 137/69 01/17/20 06:00 Pulse Ox 98 01/17/20 06:00 Orders, Labs, Meds: Laboratory Tests 01/17/20 01/17/20 01/17/20 Range/Units 06:05 06:05 06:10 WBC 8.0 (5.0-10.0) 10^3/uL RBC 4.59 L (4.6-6.2) 10^6/uL Hgb 14.0 (14.0-18.0) g/dL Hct 40.3 (40.0-54.0) % MCV 87.8 (80-100) fL MCH 30.5 (27.0-34.0) pg MCHC 34.7 (33.0-35.0) g/dL Plt Count 280 (150-450) 10^3/uL Neut % (Auto) 47.8 (42.2-75.2) % Lymph % (Auto) 42.0 (20.5-50.1) % [place] % (Auto) 7.2 (2-8) % Eos % (Auto) 2.0 (1.0-3.0) % Baso % (Auto) 1.0 (0.0-1.0) % Sodium 139 (136-145) mmol/L Potassium 3.6 (3.5-5.1) mmol/L Chloride 100 (98-107) mmol/L Carbon Dioxide 27 (21-32) mmol/L Anion Gap 15.6 H (7-13) mEq/L BUN 14 (7-18) mg/dL Creatinine 0.88 (0.70-1.30) mg/dL Est Cr Clr Drug Dosing 114.76 mL/min Estimated GFR (MDRD) > 60 BUN/Creatinine Ratio 15.9 (No establ ref range) Glucose 112 H (74-99) mg/dL Calcium 8.5 (8.5-10.1) mg/dL Magnesium 2.1 (1.8-2.4) mg/dL Total Bilirubin 0.3 (0.2-1.0) mg/dL AST 26 (15-37) U/L ALT 29 (16-63) U/L Alkaline Phosphatase 83 (46-116) U/L Total Protein 8.0 (6.4-8.2) g/dL Albumin 3.9 (3.4-5.0) g/dL Globulin 4.1 Albumin/Globulin Ratio 1.0 Amylase 68 (25-115) U/L Lipase 342 (73-393) U/L Urine Color Dark yellow (YELLOW) Urine Appearance Clear (CLEAR) Urine pH 7.0 (5.0-9.0) Ur Specific [place] >= 1.030 (1.005-1.030) Urine Protein 100 H (NEGATIVE) Urine Glucose (UA) Negative (NEGATIVE) Urine Ketones Trace H (NEGATIVE) Urine Occult Blood Negative (NEGATIVE) Urine Nitrite Negative (NEGATIVE) Urine Bilirubin Negative (NEGATIVE) Urine Urobilinogen 0.2 (0.2-1.0) mg/dL Ur Leukocyte Esterase Negative (NEGATIVE) Urine RBC 0-5 /HPF Urine WBC 0-5 (0-5/HPF) /HPF Ur Epithelial Cells Rare (NOT SEEN) /HPF Amorphous Sediment Few (NOT SEEN) /HPF Urine Bacteria Rare (0-FEW/HPF) /HPF Urine Mucus Moderate H (NOT SEEN) /LPF Urine Other See note Urine Opiates Screen (NEGATIVE) Ur Oxycodone Screen (NEGATIVE) Urine Methadone Screen (NEGATIVE) Ur Barbiturates Screen (NEGATIVE) U Tricyclic Antidepress (NEGATIVE) Ur Phencyclidine Scrn (NEGATIVE) Ur Amphetamine Screen (NEGATIVE) U Methamphetamines Scrn (NEGATIVE) Urine MDMA Screen (NEGATIVE) U Benzodiazepines Scrn (NEGATIVE) Urine Cocaine Screen (NEGATIVE) U Marijuana (THC) Screen (NEGATIVE) Ethyl Alcohol 256 (0) mg/dL 01/17/20 Range/Units 06:12 WBC (5.0-10.0) 10^3/uL RBC (4.6-6.2) 10^6/uL Hgb (14.0-18.0) g/dL Hct (40.0-54.0) % MCV (80-100) fL MCH (27.0-34.0) pg MCHC (33.0-35.0) g/dL Plt Count (150-450) 10^3/uL Neut % (Auto) (42.2-75.2) % Lymph % (Auto) (20.5-50.1) % [place] % (Auto) (2-8) % Eos % (Auto) (1.0-3.0) % Baso % (Auto) (0.0-1.0) % Sodium (136-145) mmol/L Potassium (3.5-5.1) mmol/L Chloride (98-107) mmol/L Carbon Dioxide (21-32) mmol/L Anion Gap (7-13) mEq/L BUN (7-18) mg/dL Creatinine (0.70-1.30) mg/dL Est Cr Clr Drug Dosing mL/min Estimated GFR (MDRD) BUN/Creatinine Ratio (No establ ref range) Glucose (74-99) mg/dL Calcium (8.5-10.1) mg/dL Magnesium (1.8-2.4) mg/dL Total Bilirubin (0.2-1.0) mg/dL AST (15-37) U/L ALT (16-63) U/L Alkaline Phosphatase (46-116) U/L Total Protein (6.4-8.2) g/dL Albumin (3.4-5.0) g/dL Globulin Albumin/Globulin Ratio Amylase (25-115) U/L Lipase (73-393) U/L Urine Color (YELLOW) Urine Appearance (CLEAR) Urine pH (5.0-9.0) Ur Specific [place] (1.005-1.030) Urine Protein (NEGATIVE) Urine Glucose (UA) (NEGATIVE) Urine Ketones (NEGATIVE) Urine Occult Blood (NEGATIVE) Urine Nitrite (NEGATIVE) Urine Bilirubin (NEGATIVE) Urine Urobilinogen (0.2-1.0) mg/dL Ur Leukocyte Esterase (NEGATIVE) Urine RBC /HPF Urine WBC (0-5/HPF) /HPF Ur Epithelial Cells (NOT SEEN) /HPF Amorphous Sediment (NOT SEEN) /HPF Urine Bacteria (0-FEW/HPF) /HPF Urine Mucus (NOT SEEN) /LPF Urine Other Urine Opiates Screen Negative (NEGATIVE) Ur Oxycodone Screen Negative (NEGATIVE) Urine Methadone Screen Negative (NEGATIVE) Ur Barbiturates Screen Negative (NEGATIVE) U Tricyclic Antidepress Negative (NEGATIVE) Ur Phencyclidine Scrn Negative (NEGATIVE) Ur Amphetamine Screen Negative (NEGATIVE) U Methamphetamines Scrn Negative (NEGATIVE) Urine MDMA Screen Negative (NEGATIVE) U Benzodiazepines Scrn Negative (NEGATIVE) Urine Cocaine Screen Negative (NEGATIVE) U Marijuana (THC) Screen Negative (NEGATIVE) Ethyl Alcohol (0) mg/dL Medications Discontinued Medications Generic Name Dose Route Start Last Admin Trade Name Freq PRN Reason Stop Dose Admin Multivitamins/Minerals 10 ml/ 1,011.2 mls @ 999 mls/hr 01/17/20 05:59 01/17/20 06:08 Folic Acid 1 mg/ Thiamine HCl IV 01/17/20 06:59 999 mls/hr 100 mg/ Lactated Ringer's ONETIME ONE Administration Re-Assessment/Re-Exam: Patient states he feels much better following [employer]. As patient has a safe ride home, with discharge with instructions to follow up with outpatient treatment. Departure - Departure Time of Disposition: 08:02 Condition: Good - Discharge Information *PRESCRIPTION DRUG MONITORING PROGRAM REVIEWED*: Not Applicable *COPY OF PRESCRIPTION DRUG MONITORING REPORT IN PATIENT POLO: Not Applicable Sepsis Event Note (ED) - Focused Exam Vital Signs: Vital Signs Temp Pulse Resp BP Pulse Ox 01/17/20 06:00 97.9 F 102 H 19 137/69 98
== END 2020-01-17 08:10 | disposition home or self-care (01) ==
LOC: DL.ED 05:55
DX: F10.120 Alcohol abuse with intoxication, uncomplicated (principal); Y90.8 Blood alcohol level of 240 mg/100 ml or more; Z77.22 Contact with and (suspected) exposure to environmental tobacco smoke (acute) (chronic)
CPT/HCPCS: 36415; 80053; 80305-QW; 80307; 81001; 82150; 83690; 83735; 85025; 96365; 99282; 99284-25; J3411; J3490; J7120